=== PATIENT | female | born 1940 | race Caucasian/White ===

== ENCOUNTER 2017-10-07 12:31 | Day surgery (SDC) | payer OTHER ==
[~2017-10-07] VITALS: Ht 160 cm; Wt 84.9 kg
[~2017-10-07 12:31] MED LIST: DULO30 PO; DULO60; GABA300 PO; INSDET100 SC; INSU100I6 SC; INSULANI SC; INSULANPEN; LEVFLO500 PO; LEVSOD100 PO; LISI5 PO; METF500 PO; METFORMIN HCL1000 MG PO; METO25ER PO; TOUJEO SOL300 UNIT/1 SC; TURMERIC500 M2
== END 2017-10-07 13:04 | disposition home or self-care (01) ==
LOC: ORSCSDS 12:31
DX: H25.11 Age-related nuclear cataract, right eye (principal); Z53.9 Procedure and treatment not carried out, unspecified reason
CPT/HCPCS: J2250; J3010

== ENCOUNTER → 2017-10-11 | Outpatient (CLI) | payer OTHER | LOC: LAB EV 14:00 | DX: R73.9 Hyperglycemia, unspecified (principal); R35.0 Frequency of micturition | CPT/HCPCS: 87077; 87086; 87186 ==

== ENCOUNTER → 2018-01-25 | Outpatient (CLI) | payer OTHER ==
[2018-01-25 11:52] LABS: Creatinine, Urine Random 95.5 mg/dL (27.00-270.00)
[2018-01-25 11:55] LABS: Microalb/Creat Ratio UR, Rand 18.639 mg/g (0.000-30.000); Microalbumin, Random Urine 17.8 mg/L (0.000-20.000)
== END | disposition home or self-care (01) ==
LOC: LAB EV 09:45
PROVIDERS: Internal Medicine Endocrinology, Diabetes & Metabolism
DX: E10.65 Type 1 diabetes mellitus with hyperglycemia (principal)
CPT/HCPCS: 82043; 82570

== ENCOUNTER → 2018-04-13 | Outpatient (CLI) | payer OTHER | END | disposition home or self-care (01) | LOC: LAB SHORT 14:45 → LAB EV 14:45 | DX: S91.101A Unspecified open wound of right great toe without damage to nail, initial encounter (principal) | CPT/HCPCS: 87070; 87075; 87077; 87147; 87186; 87205 ==

== ENCOUNTER 2020-05-21 06:45 | Day surgery (SDC) | payer OTHER ==
[~2020-05-21] VITALS: Ht 160 cm; Wt 87.4 kg
[~2020-05-21 06:45] MED LIST changes: +ACYC400 PO; +DULO60 PO; +GLUCOPHAGE1000 M1 PO; +TUMERIC PO
[2020-05-21] MEDS ORDERED: LOSA25 (07:05)
== END 2020-05-21 09:01 | disposition home or self-care (01) ==
LOC: ORSCSDS 06:45
PROVIDERS: Ophthalmology
PROC: 08RK3JZ Replacement of Left Lens with Synthetic Substitute, Percutaneous Approach (ICD-10-PCS; principal; 2020-05-21 08:15)
DX: H25.12 Age-related nuclear cataract, left eye (principal); I10 Essential (primary) hypertension; E78.5 Hyperlipidemia, unspecified; G47.33 Obstructive sleep apnea (adult) (pediatric); F17.210 Nicotine dependence, cigarettes, uncomplicated; K21.9 Gastro-esophageal reflux disease without esophagitis; E11.9 Type 2 diabetes mellitus without complications; N18.30 Chronic kidney disease, stage 3 unspecified; E66.9 Obesity, unspecified; Z68.34 Body mass index [BMI] 34.0-34.9, adult; Z79.4 Long term (current) use of insulin; Z79.84 Long term (current) use of oral hypoglycemic drugs; Z79.899 Other long term (current) drug therapy
CPT/HCPCS: 82947; J1815; J2001; J2250; J3010; J3301; J7040; V2632

== ENCOUNTER 2020-06-11 06:25 | Day surgery (SDC) | payer OTHER ==
[~2020-06-11] VITALS: Ht 160 cm; Wt 88.0 kg
[~2020-06-11 06:25] MED LIST changes: +LOSA25
== END 2020-06-11 08:24 | disposition home or self-care (01) ==
LOC: ORSCSDS 06:25
PROVIDERS: Ophthalmology
PROC: 08RJ3JZ Replacement of Right Lens with Synthetic Substitute, Percutaneous Approach (ICD-10-PCS; principal; 2020-06-11 07:30)
DX: H25.11 Age-related nuclear cataract, right eye (principal); I10 Essential (primary) hypertension; G47.33 Obstructive sleep apnea (adult) (pediatric); Z87.891 Personal history of nicotine dependence; N18.30 Chronic kidney disease, stage 3 unspecified; E11.9 Type 2 diabetes mellitus without complications; Z79.4 Long term (current) use of insulin; Z79.84 Long term (current) use of oral hypoglycemic drugs; Z79.899 Other long term (current) drug therapy; E66.9 Obesity, unspecified; Z68.34 Body mass index [BMI] 34.0-34.9, adult
CPT/HCPCS: 82947; J2001; J2250; J3010; J3301; J7040; V2632

== ENCOUNTER → 2020-07-10 | Outpatient (CLI) | payer OTHER, SELFPAY ==
[2020-07-10 13:47] LABS: Appearance, Urine Cloudy (Clear); Bilirubin, Urine Neg (Neg); Blood, Urine 1+ (Neg); Color, Urine Yellow (P-Yellow); Glucose Qualitative, Urine 3+ (Normal); Ketones, Urine Neg (Neg); Leukocyte Esterase, Urine 1+ (Neg); Nitrite, Urine Pos (Neg); Protein, Urine Neg (Neg); Urobilinogen, Urine NORM (Normal)
[2020-07-10 13:48] LABS: Bacteria Mod /hpf; Red Blood Cells, Urine 0-2 /hpf (0-2); Squamous Epithelial Cells Few /hpf (Few)
== END ==
LOC: PLD 12:45
PROVIDERS: Nurse Practitioner Family
DX: R35.0 Frequency of micturition (principal)
CPT/HCPCS: 81001; 87077; 87086; 87147; 87186

== ENCOUNTER 2020-08-13 20:22 | Inpatient (IN) | payer OTHER, SELFPAY ==
[~2020-08-13] VITALS: Ht 157.5 cm; Wt 86.9 kg
[2020-08-13 20:43] LABS: BASOPHILS ABSOLUTE AUTO 0.05 K/mm3 (0.00-0.23); BASOPHILS PERCENT AUTO 0 % (0-2); EOSINOPHILS PERCENT AUTO 0 % (0-6); Hematocrit 46.2 % (33.0-51.0); Hemoglobin 15.3 g/dL (11.5-16.0); IMMATURE GRAN ABSOLUTE AUTO 0.07 K/mm3 (0.00-0.10); IMMATURE GRAN PERCENT AUTO 0 % (0-1); LYMPHOCYTES ABSOLUTE AUTO 0.95 K/mm3 (0.84-5.20); LYMPHOCYTES PERCENT AUTO 5 % (21-46); MONOCYTES ABSOLUTE AUTO 0.54 K/mm3 (0.16-1.47); MONOCYTES PERCENT AUTO 3 % (4-13); Mean Corpuscular HGB 29.7 pg (26.0-34.0); Mean Corpuscular HGB Conc 33.1 g/dL (31.5-36.5); Mean Corpuscular Volume 90 fL (80-100); Mean Platelet Volume 9.2 fL (9.1-12.4); NEUTROPHILS ABSOLUTE AUTO 16.25 K/mm3 (1.96-9.15); NEUTROPHILS PERCENT AUTO 91 % (41-73); Platelet Count 359 K/mm3 (150-400); RDW Standard Deviation 39.8 fL (35.1-46.3); Red Blood Cell Count 5.15 M/mm3 (3.80-5.20); White Blood Cell Count 17.86 K/mm3 (4.00-11.30)
[2020-08-13 20:57] LABS: Prothrombin Time Results 10.7 Sec (9.7-11.5)
[2020-08-13 21:16] LABS: Source, Urine Catheter
[2020-08-13 21:17] LABS: Alanine Aminotransfer (ALT/SGP 19 U/L (12-78); Albumin, Blood 3.4 g/dL (3.4-5.0); Albumin/Globulin Ratio 0.8 (0.8-1.8); Alk Phos 102 U/L (50-136); Anion Gap 13 mmol/L (6-16); Aspartate Aminotrans (AST/SGOT 17 U/L (12-37); Bilirubin, Total 0.5 mg/dL (0.1-1.0); Blood Urea Nitrogen 17 mg/dL (8-24); Bun/Creatinine Ratio 25.8 (12.0-20.0); CO2, Blood 20 mmol/L (21-32); Chloride, Blood 106 mmol/L (98-108); Creatinine, Blood 0.66 mg/dL (0.40-1.00); Globulin, Blood 4.3 g/dL (2.2-4.0); Glomerular Filtration Rate >60 (60-); Glucose, Blood 366 mg/dL (70-99); Magnesium, Blood 2.2 mg/dL (1.6-2.4); Potassium, Blood 4.1 mmol/L (3.5-5.5); Sodium, Blood 139 mmol/L (136-145); Total Protein, Blood 7.7 g/dL (6.4-8.2); Troponin I <0.015 ng/mL (0.000-0.040)
[2020-08-13 21:18] LABS: Bilirubin, Urine Neg (Neg); Blood, Urine 1+ (Neg); Glucose Qualitative, Urine 4+ (Neg); Ketones, Urine 3+ (Neg); Leukocyte Esterase, Urine Neg (Neg); Nitrite, Urine Neg (Neg); Protein, Urine 2+ (Neg); Urobilinogen, Urine NORM (Normal)
[2020-08-13 21:23] LABS: Color, Urine Yellow (P-Yellow)
[2020-08-13 21:25] LABS: Appearance, Urine Clear (Clear)
[2020-08-13 21:26] LABS: Bacteria Few /hpf; Red Blood Cells, Urine 0-2 /hpf (0-2); Squamous Epithelial Cells Few /hpf (Few); White Blood Cells, Urine 0-2 /hpf (0-5)
--- NOTE | 2020-08-13 23:29 | NUR ---
ETT SECURED AT 24 CM AT [facility]
--- NOTE | 2020-08-14 02:40 | NUR ---
ADMIT/ASSESSMENT PT ADMITTED TO ICU 07 VIA ER. ARRIVED VIA GURNEY WITH RN AND RT. PT TRANSFERED TO BED BY STAFF WITH SLIDER SHEET AND PLACED ON [facility] VENT. VENT SETTINGS AC 16 TV 400 PEEP 5 FIO2 30%. LUNGS CLEAR BUT DECREASED IN THE BASES. SUCTIONED THICK KENYON SPUTUM VIA ET TUBE. HEART RATE REGULAR, BP STABLE. NO EDEMA. PT YAWNING BUT NO OTHER RESPONSIVE TO PAINFUL STIMULI. BILAT SOFT WRIST RESTRAINTS ON. IV 20G TO RIGHT FOREARM WITH PROPOFOL AT 45 MCQ/KG/MIN, SITE CLEAR. IV 18G TO LEFT AC WITH NS AT 75 ML/HR, SITE CLEAR. ABAD TEMP PROBE DRAINING CLEAR YELLOW URINE. ABRAISIONS NOTED TO BILAT KNEES, SEE PHOTOS.
[2020-08-14 03:50] LABS: PCO2 Arterial 30.8 mmHg (35-45); PO2 Arterial 84.4 mmHg (80-100); pH Blood Arterial 7.46 (7.35-7.45)
[2020-08-14 05:47] LABS: Alanine Aminotransfer (ALT/SGP 20 U/L (12-78); Albumin, Blood 3.2 g/dL (3.4-5.0); Albumin/Globulin Ratio 0.8 (0.8-1.8); Alk Phos 97 U/L (50-136); Anion Gap 10 mmol/L (6-16); Aspartate Aminotrans (AST/SGOT 23 U/L (12-37); Bilirubin, Total 0.6 mg/dL (0.1-1.0); Blood Urea Nitrogen 17 mg/dL (8-24); Bun/Creatinine Ratio 24.1 (12.0-20.0); CO2, Blood 22 mmol/L (21-32); Chloride, Blood 106 mmol/L (98-108); Globulin, Blood 4.2 g/dL (2.2-4.0); Glomerular Filtration Rate >60 (60-); Glucose, Blood 384 mg/dL (70-99); Phosphorus, Blood 2.4 mg/dL (2.5-4.9); Potassium, Blood 4.5 mmol/L (3.5-5.5); Sodium, Blood 138 mmol/L (136-145); Total Protein, Blood 7.4 g/dL (6.4-8.2)
--- NOTE | 2020-08-14 10:29 | NUR ---
PT INTUBATED. SEDATION TURNED OFF FOR SBT. PT IS NOT RESPONDING AFTER OVER A HOUR OFF OF SEDATION. TWITCHES FEET AT TIMES BUT THAT IS THE ONLY SPONTANEOUS MOVEMENT. PUPILS ARE PINPOINT. NO GAG. PT DID NOT DO WELL WITH SBT WITH LOW TIDAL VOLUMES. PLACED BACK ON AC MODE WITHIN 10MINS OF START. ECHO DONE THIS AM. UPDATED DAUGHTER TYESHA VIA PHONE AND SHE WILL BE IN LATER THIS AFTERNOON TO SEE PT.
--- NOTE | 2020-08-14 11:10 | NUR ---
INITIAL PAL CARE CONSULT VISIT AND MULTIPLE CASE CONFERENCES with Dr Whittaker, ICU RNs, hat designer, and elvira after review of EMR. Pt was admitted after being found down outside in yard for undetermined amount of time. She was intubated in the ER in the absence of family or a directive available. When family arrived they clarified pt's code status and desired wishes as DNR/DNI. Pt is currently ventilated and unresponsive, without sedation. I spoke with elvira, Alexandra at length re: previous health history, quality of life, recent PLOF. Pt is living in an RV behind elvira and family's home. 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 Per, Elvira, Pt was very angry with daughter for some time afterwards and again stated she would not want CPR, intubation or life support again. Family had been planning on moving pt into the home instead of her own RV. Elvira is certain that pt would not want continued life support. She asked us to hold tube feeding until after she can meet with and talk to Dr Whittaker this afternoon. I offered Alexandra (with approval) to bring a support person in for our planned EOL/advanced care meeting today and cleared this with hot car charger, house supervisors and notified screeners. Pt's , EFM, nursing, dietitian and airplane coverer notified of above and my conversation with elvira. Elvira expressed desire for me to attend meeting with and I will plan on doing that.
--- NOTE | 2020-08-14 12:30 | NUR ---
Echocardiogram completed.
--- NOTE | 2020-08-14 14:44 | NUR ---
FAMILY AT BEDSIDE. DR. GARCIA SPOKE WITH THEM AND ORDERED A REPEAT CT OF THE HEAD. PALLIATIVE CARE IN TO SEE THEM WELL AND OFFER SUPPORT. SPOKE WITH DR. GARCIA ABOUT SBP TRENDING UP BUT NOT DOING ANYTHING TO BRING IT DOWN UNTIL REPEAT CT IS DONE AND DETERMINE EXTENT OF STROKE.
--- NOTE | 2020-08-14 16:31 | NUR ---
ADMIT: 08/13/20 DISCHARGE: DX: unresponsive CC: iram MACHELLE CALL: RESIDENCE: lives in trailer behind family home CAREGIVER: Carol Egan [phone] DX: DME: CCM: HOME HEALTH: SUMMARY: Admit 08/13/20 unresponsive. 08/14/2020 financial writer was notified by Emmie Mar Palliative care and Dr Whittaker to meet with family today to discuss withdrawl of care. Dr Hernández notified of patient. Not on his list for today as of yet. 1600 per Emmie in Palliative care, family bring in pastoral support. May withdraw care by end of evening.
--- NOTE | 2020-08-14 16:32 | NUR ---
Pal Care visit Supportive visit made at tail end of Family meeting with Dr Whittaker. Plan is to check a repeat CT of head for information on progression or status of CVA to correlate with current s/s and presentation. Time spent with Elvira, Alexandra and her , answering questions and providing info, support and encouragement. They are very loving and attentive to pt. I thanked them for their presence and care of Grisel. They will remain at bedside until results of CT known. Discussed goals of care and plan of choice if CVA has progressed. Elvira requested that her children ages 17,19 and 27 be allowed to visit and inquired if that should be before extubation if that is to occur. I recommended they come in while pt comfortable and intubated if they are able to. Permission obtained from duplicating machine operator and screeners alerted to additional visitors coming.
--- NOTE | 2020-08-14 16:39 | NUR ---
Supportive visit made after family received update on worsening, progressing CVA found on CT. Pocket Marker or family autocad technician visit offered. Family would like this and contacted patient's autocad technician, who is very close to her for prayer. Family to proceed with w/d of life support after autocad technician's visit. Spoke with RN, liner replacer, and EFM care coord with update. Pt cont to appear very comfortable with no nonverbal indicators of pain, anxiety, agitation or distress noted. Family is comforted by this. They are very supportive of one another. Grandchildren are holding pt's hand and talking to her. Family members are appropriately tearful. I encouraged them to verbalize whatever was on their heart to say to Grisel at this time. They are on the phone with their autocad technician when I stepped out to give them privacy and time to be together.
--- NOTE | 2020-08-14 18:50 | NUR ---
SUMMARY PT WAS MADE COMFORT CARE THIS EVENING AFTER CT RESULTS WERE PRESENTED BY DR. GARCIA. EXTUBATED AT 1820. GAVE ATIVAN, MORPHINE, AND ATROPINE GTTS FOR COMFORT. REPOSITIONED FOR COMFORT WELL. FAMILY AT BEDSIDE. COMFORT CARE CART IN THE ROOM FOR REFRESHMENTS. RESP AND HR IRREGULAR. WILL REPORT TO ONCOMING RN.
--- NOTE | 2020-08-14 20:07 | NUR ---
PATIENT UNRESPONSIVE, HEART RATE UP AND RESP 20'S WITH WET RESP. DEEP ORAL SUCTION WITH NO RESULTS, PATIENT REPOSITIONED AND GIVEN MORPHINE IV FOR PAIN. REMAINS ON RA WITH BIOX 88-90% FAMILY AT BEDSIDE
--- NOTE | 2020-08-14 21:51 | NUR ---
AT 2138 PATIENT NO LONGER BREATHING, HEART RATE RJ DOWN TO ASYSTOLE. NO HEART BEAT AND NO RESP. FAMILY NOTIFIED, AWAITING CALL BACK REGARDING MORTUARY THAT FAMILY IS WANTING.
--- NOTE | 2020-08-14 22:22 | NUR ---
PLAN TO USE MORTUARY CHILD AND FAMILY THERAPIST, [facility]. FAMILY PROVIDED NAME, ADDRESS, AND PHONE NUMBER.
== END 2020-08-14 21:38 | DRG 64 ==
LOC: ER 20:22 → ERHOLD 08-14 01:31 → ICUE 08-14 01:31
PROVIDERS: Emergency Medicine; ADMIT Internal Medicine
PROC: 5A1935Z Respiratory Ventilation, Less than 24 Consecutive Hours (ICD-10-PCS; principal; 2020-08-13)
PROC: 0BH17EZ Insertion of Endotracheal Airway into Trachea, Via Natural or Artificial Opening (ICD-10-PCS; 2020-08-13)
DX: I63.9 Cerebral infarction, unspecified (principal); J96.01 Acute respiratory failure with hypoxia; R40.20 Unspecified coma; G93.49 Other encephalopathy; Z66 Do not resuscitate; Z51.5 Encounter for palliative care; I65.23 Occlusion and stenosis of bilateral carotid arteries; I10 Essential (primary) hypertension; T68.XXXA Hypothermia, initial encounter; E11.51 Type 2 diabetes mellitus with diabetic peripheral angiopathy without gangrene; E11.40 Type 2 diabetes mellitus with diabetic neuropathy, unspecified; E11.319 Type 2 diabetes mellitus with unspecified diabetic retinopathy without macular edema; E03.9 Hypothyroidism, unspecified; M19.90 Unspecified osteoarthritis, unspecified site; Z79.4 Long term (current) use of insulin; Z87.891 Personal history of nicotine dependence
CPT/HCPCS: 31500; 31720; 36415; 36600; 51702; 70450; 70496; 70498; 71045; 80053; 81001; 82140; 82803; 82947; 83735; 83880; 84100; 84484; 85025; 85610; 87070; 87205; 93005; 93010; 93306; 94002; 94003; 96365; 96366; 96375; 99285-25; A9270; J0330; J0696; J1650; J2060; J2270; J2704; J7030; J7050; Q9967